=== PATIENT | male | born 1940 | race American Indian/Alaskan Native ===

== ENCOUNTER 2017-04-12 16:38 | Outpatient (CLI) | payer MEDICARE, OTHER ==
--- NOTE | 2017-04-14 09:12 | Magnetic Resonance Report ---
MRI scan of the lumbar spine: Technique: Multiplanar multisequence images were obtained without contrast injection. Findings: The conus medullaris terminates at L1 with normal signal intensity. Normal lumbar lordosis. Normal pre-and paravertebral soft tissue. Normal height and signal intensity of vertebral bodies. Decrease in height and signal intensity of intervertebral disc spaces secondary to degenerative changes. L1-L2. Bilateral neural foramina narrowing being more pronounced on the left side secondary to degenerative diffuse disc bulge and degenerative facet joints with mild ligamenta flava hypertrophy. No central canal spinal stenosis. L2-L3. Bilateral moderate neural foramina narrowing secondary to degenerative disc and degenerative facet joints. Mild ligamenta flava hypertrophy. No definite central canal spinal stenosis. L3-L4. Moderate to severe bilateral neuroforaminal narrowing and mild central canal spinal stenosis secondary to degenerative diffuse disc bulge and degenerative facet joints with ligamentum flavum hypertrophy. L4-5. Severe bilateral neuroforaminal narrowing and moderate central canal spinal stenosis secondary to degenerative diffuse disc bulge, degenerative facet joints and ligamenta flava hypertrophy. L4-L5. Moderate bilateral neural foramina narrowing. No central canal spinal stenosis. Degenerative facet joints and degenerative disc. No focal extrusion or sequestration of disc. Impression: Multilevel bilateral neural foramina narrowing and central canal spinal stenosis secondary to degenerative diffuse disc bulge and degenerative facet joints with ligamenta flava hypertrophy.
== END 2017-04-12 16:39 | disposition home or self-care (01) ==
LOC: MRI 16:38
PROVIDERS: ATTEND Neurological Surgery
DX: M48.06 Spinal stenosis, lumbar region (principal); I11.0 Hypertensive heart disease with heart failure; I50.9 Heart failure, unspecified; I25.10 Atherosclerotic heart disease of native coronary artery without angina pectoris; E78.5 Hyperlipidemia, unspecified
CPT/HCPCS: 72148

== ENCOUNTER 2017-12-19 14:46 | Outpatient (CLI) | payer MEDICARE, OTHER ==
--- NOTE | 2017-12-19 21:09 | XRay Report ---
FINAL REPORT PROCEDURE: XR KNEE 4+V LT TECHNIQUE: Left knee, four views HISTORY: LEFT KNEE PAIN COMPARISON: No prior studies are available for comparison. FINDINGS: There are tricompartmental osteoarthritic changes. There is joint space narrowing and osteophyte formation. No joint effusion. Vascular calcifications are present. IMPRESSION: Tricompartmental osteoarthritis
== END 2017-12-19 14:47 | disposition home or self-care (01) ==
LOC: SPVIMAG 14:46
PROVIDERS: ATTEND Orthopaedic Surgery Sports Medicine
DX: M17.12 Unilateral primary osteoarthritis, left knee (principal)

== ENCOUNTER 2019-07-24 10:03 | Outpatient (CLI) | payer MEDICARE, OTHER ==
--- NOTE | 2019-07-24 19:02 | Ultrasound Report ---
ULTRASOUND ABDOMEN, COMPLETE INDICATION: D69.6)THROMBOCYTOPENIA EVALUATE LIVER AND /OR SPLEEN SIZE. COMPARISON: None available. FINDINGS: Pancreas: Normal. Abdominal Aorta: Normal. IVC: Normal. Liver: Normal size however the imaging of the liver was difficult and appears to be heterogeneous Gallbladder: Normal. Bile ducts: Normal. Common Bile Duct measures 4 mm. Right Kidney: Normal. Left Kidney: Echogenic focus with acoustic shadowing left kidney questionable renal calculus Spleen: Normal size without evidence of focal lesion Free fluid: None. Additional Findings: None. IMPRESSION: 1. Probable left nephrolithiasis 2. Questionable diffuse liver disease recommend CT with intravenous contrast for further evaluation Signer Name: Otto Saavedra MD Signed: 07/24/2019 6:58 PM Workstation Name: [id number]
== END 2019-07-24 10:04 | disposition home or self-care (01) ==
LOC: US 10:03
PROVIDERS: ATTEND Internal Medicine Hematology & Oncology
DX: D69.6 Thrombocytopenia, unspecified (principal); I25.10 Atherosclerotic heart disease of native coronary artery without angina pectoris; E78.5 Hyperlipidemia, unspecified; I11.0 Hypertensive heart disease with heart failure; I50.9 Heart failure, unspecified; M19.90 Unspecified osteoarthritis, unspecified site
CPT/HCPCS: 76700

== ENCOUNTER 2019-08-05 05:38 | Outpatient (CLI) | payer MEDICARE, BC, OTHER ==
[2019-08-05 08:01] LABS: Blood Urea Nitrogen 11 mg/dL (9-20)
--- NOTE | 2019-08-05 09:36 | Cat Scan Report ---
CT ABDOMEN WITH CONTRAST HISTORY: K76.9) LIVER DISEASE. COMPARISON: Ultrasound abdomen performed 07/24/2019 TECHNIQUE: CT images of the abdomen were obtained following administration of intravenous contrast. S agittal and coronal reformatted images. All CT scans at this location are performed using CT dose red uction for ALARA by means of automated exposure control. CONTRAST: 100 ml of intravenous contrast administered. FINDINGS: The liver is normal size and contour. Mild diffuse fatty infiltration is suspected throughout the elie er. No evidence for surface nodularity or liver mass. The hepatic veins and portal venous system are widely patent. The biliary system, pancreas, spleen, kidneys and adrenal glands are unremarkable. The bowel loops appear normal caliber and wall thickness throughout the abdomen and pelvis. No eviden ce for obstruction, focal mass or inflammation. I believe I see the appendix inferior to the cecum wh ich is unremarkable. The bladder and distal ureters are within normal limits. No pelvic fluid collection or adenopathy. The bony structures are demineralized. There is mild dextro curvature to the lumbar spine with diffus e degenerative changes. No fracture or suspicious bony lesion is detected. The visualized lung bases are clear. Normal heart size. IMPRESSION: Mild fatty infiltration throughout the liver. No enlargement or focal mass. Signer Name: Ernesto Delatorre Jr, MD Signed: 08/05/2019 9:32 AM Workstation Name: [id number]
== END 2019-08-05 05:39 | disposition home or self-care (01) ==
LOC: CT 05:38
PROVIDERS: ATTEND Internal Medicine Hematology & Oncology
DX: K76.9 Liver disease, unspecified (principal); K76.0 Fatty (change of) liver, not elsewhere classified
CPT/HCPCS: 36415; 74160; 82565; 84520

== ENCOUNTER 2021-02-20 19:49 | Emergency (ER) | payer MEDICARE, OTHER ==
--- NOTE | 2021-02-20 22:46 | XRay Report ---
RIGHT HAND RADIOGRAPH, 3 VIEWS INDICATION / CLINICAL INFORMATION: Foreign body right index finger COMPARISON: None available. FINDINGS: BONES / JOINT(S): No acute displaced fracture or subluxation. Mild panarticular osteoarthritis. SOFT TISSUES: Soft tissue swelling of the index finger. The reported foreign object is not visualized radiographically. ADDITIONAL FINDINGS: None. Signer Name: Delaney Cardenas MD Signed: 02/20/2021 10:41 PM Workstation Name: [id number]
[2021-02-20] MEDS ORDERED: TETANUS,DIPH,PERTUSS(ACELL) VACCINE 0.5 ML SYRINGE IM ONE (23:35)
[2021-02-20] MEDS ORDERED: BUPIVACAINE/PF (0.5%) 5 MG/1 ML 10 ML VIAL INFILTRATI ONE (23:35)
--- NOTE | 2021-02-20 23:44 | Emergency Department Report ---
- General Chief Complaint: Wound/Laceration Stated Complaint: RT FINGER INJURY Time Seen by Provider: 02/20/21 22:27 Source: patient Mode of arrival: Ambulatory Limitations: No Limitations - History of Present Illness Initial Comments: Patient is a 80-year-old male presents emergency room complaints of a wooden splinter present to his right index finger that occurred tonight. He states that he was walking down the steps of his deck and caught himself on the railing and that the splinter got stuck inside the finger. He states that he was able to pull a piece out but it broke off and another piece is still left inside. He denies any significant bleeding. He denies any other injury. He is unsure of his last tetanus immunization but states he knows it has been longer than 5 years. He denies any numbness or weakness. He is still able to move the finger. Past medical history of CHF, arthritis, hypertension. No allergies to medications. - Related Data Home Medications Medication Instructions Recorded Confirmed Last Taken Aspirin 325 mg PO QDAY 03/27/14 03/27/14 03/27/14 Gabapentin 300 mg PO DAILY 03/27/14 03/27/14 03/27/14 Metoprolol [Lopressor] 25 mg PO TID 03/27/14 03/27/14 03/27/14 Omeprazole [PriLOSEC] 1 tab PO DAILY 03/27/14 03/27/14 03/27/14 Rosuvastatin (Nf) [Crestor] 40 mg PO QHS 03/27/14 03/27/14 03/26/14 Warfarin [Coumadin] 2.5 mg PO QDAY 03/27/14 03/27/14 03/26/14 Previous Rx's Medication Instructions Recorded Last Taken Type Neomycin/Bacitracin/Polymyxinb 1 applicatio TP BID #14 oint...g. 02/21/21 Unknown Rx [Triple Antibiotic Ointment] cephALEXin [Keflex] 500 mg PO QID 7 Days #28 cap 02/21/21 Unknown Rx Allergies Allergy/AdvReac Type Severity Reaction Status Date / Time No Known Allergies Allergy Unverified 08/20/13 13:23 ED Review of Systems ROS: Stated complaint: RT FINGER INJURY Other details as noted in HPI Comment: All other systems reviewed and negative ED Past Medical Hx - Past Medical History Previous Medical History?: Yes Hx Hypertension: Yes Hx Congestive Heart Failure: Yes Hx Arthritis: Yes - Surgical History Past Surgical History?: No - Social History Smoking Status: Never Smoker Substance Use Type: None - Medications Home Medications: Home Medications Medication Instructions Recorded Confirmed Last Taken Type Aspirin 325 mg PO QDAY 03/27/14 03/27/14 03/27/14 History Gabapentin 300 mg PO DAILY 03/27/14 03/27/14 03/27/14 History Metoprolol [Lopressor] 25 mg PO TID 03/27/14 03/27/14 03/27/14 History Omeprazole [PriLOSEC] 1 tab PO DAILY 03/27/14 03/27/14 03/27/14 History Rosuvastatin (Nf) [Crestor] 40 mg PO QHS 03/27/14 03/27/14 03/26/14 History Warfarin [Coumadin] 2.5 mg PO QDAY 03/27/14 03/27/14 03/26/14 History Neomycin/Bacitracin/Polymyxinb 1 applicatio TP BID #14 oint...g. 02/21/21 Unknown Rx [Triple Antibiotic Ointment] cephALEXin [Keflex] 500 mg PO QID 7 Days #28 cap 02/21/21 Unknown Rx ED Physical Exam - General Limitations: No Limitations General appearance: alert, in no apparent distress - Head Head exam: Present: atraumatic, normocephalic - Eye Eye exam: Present: normal appearance - ENT ENT exam: Present: mucous membranes moist - Extremities Exam Extremities exam: Present: other (there are two small pin point puncture wounds present to the distal palmar surface of the right index finger which appear consistent with entrance and exit wound, there is a palpable piece of wound remaining, no bony ttp, no bleeding, FROM of the wrist, hand, and digits, neurovascularly intact) - Neurological Exam Neurological exam: Present: alert, oriented X3 - Psychiatric Psychiatric exam: Present: normal affect, normal mood - Skin Skin exam: Present: warm, dry ED Course Vital Signs 02/20/21 02/21/21 21:55 01:38 Temperature 98.3 F 98.2 F Pulse Rate 76 81 Respiratory 18 16 Rate Blood Pressure 156/81 Blood Pressure 126/66 [Left] O2 Sat by Pulse 97 100 Oximetry - Procedure Description Procedures done: Foreign body removal from the right index finger. Verbal consent given by patient, risk and alternatives discussed. Irrigated with saline and scrubbed with Betadine, digital block performed, made sure to aspirate to avoid arterial infiltration, 6 cc of anestheic used containing a 50- 50 mixture of 1% lidocaine without epinephrine and 0.5% bupivacaine without epinephrine, good anesthesia achieved, 2 mm incision made with 11 blade, able to use sharp forceps and removed thin wooden foreign body completely, patient tolerated well, no complications, bleeding controlled, sterile dressing applied by nurse ED Medical Decision Making - Medical Decision Making Patient is a 80-year-old male presents emergency room complaints of a wooden splinter present to his right index finger that occurred tonight. He states that he was walking down the steps of his deck and caught himself on the railing and that the splinter got stuck inside the finger. He states that he was able to pull a piece out but it broke off and another piece is still left inside. He denies any significant bleeding. He denies any other injury. He is unsure of his last tetanus immunization but states he knows it has been longer than 5 years. He denies any numbness or weakness. He is still able to move the finger. Past medical history of CHF, arthritis, hypertension. No allergies to medications. Vitals are stable. On exam:there are two small pin point puncture wounds present to the distal palmar surface of the right index finger which appear consistent with entrance and exit wound, there is a palpable piece of wound remaining, no bony ttp, no bleeding, FROM of the wrist, hand, and digits, neurovascularly intact. Foreign body removed per procedure note without any complications. Patient given tetanus immunization. Patient given prescription for Keflex and triple antibiotic ointment. Advised patient Please take medication as prescribed. Please keep area clean, dry, covered. Wash with antibacterial soap and water and pat dry. No hot tub, no pool, no soaking in water. Showering is fine. Follow-up with your primary care doctor for reexamination. Return to emergency room immediately for any new or worsening symptoms or any signs of infection. Critical care attestation.: If time is entered above; I have spent that time in minutes in the direct care of this critically ill patient, excluding procedure time. ED Disposition Clinical Impression: Foreign body of right index finger Disposition: TO HOME OR SELFCARE Is pt being admited?: No Does the pt Need Aspirin: No Condition: Stable Instructions: Skin Foreign Body Additional Instructions: Please take medication as prescribed. Please keep area clean, dry, covered. Wash with antibacterial soap and water and pat dry. No hot tub, no pool, no soaking in water. Showering is fine. Follow-up with your primary care doctor for reexamination. Return to emergency room immediately for any new or worsening symptoms or any signs of infection. Prescriptions: cephALEXin [Keflex] 500 mg PO QID 7 Days #28 cap Neomycin/Bacitracin/Polymyxinb [Triple Antibiotic Ointment] 1 applicatio TP BID #14 oint...g. Referrals: PRIMARY CARE, [Primary Care Provider] - 3-5 Days Time of Disposition: 01:15 Print Language: ERITREAN
[2021-02-21 01:40] VITALS: BP 126/66
== END 2021-02-21 01:39 | disposition home or self-care (01) ==
LOC: ED 19:49
DX: S61.240A Puncture wound with foreign body of right index finger without damage to nail, initial encounter (principal); I11.0 Hypertensive heart disease with heart failure; I50.9 Heart failure, unspecified; M19.91 Primary osteoarthritis, unspecified site; Z79.899 Other long term (current) drug therapy; X58.XXXA Exposure to other specified factors, initial encounter; Y93.89 Activity, other specified; Y92.89 Other specified places as the place of occurrence of the external cause; Y99.8 Other external cause status
CPT/HCPCS: 90471; 90715

== ENCOUNTER 2021-03-02 12:51 | Outpatient (CLI) | payer MEDICARE, OTHER ==
--- NOTE | 2021-03-02 14:33 | XRay Report ---
LEFT FOOT 3 VIEWS INDICATION: Z18.9. COMPARISON: None. IMPRESSION: Moderate to severe osteopenia is evident. There appear to be subacute healing fractures of the metacarpal necks 3 and 4. The third metacarpal fracture is mildly displaced. The remaining bon y structures are grossly intact. A moderate hallux valgus deformity is present with moderate degener ative changes at the first metatarsophalangeal joint. No erosive joint pathology. Small plantar spur is noted. The soft tissues are unremarkable. Signer Name: Ernesto Delatorre Jr, MD Signed: 03/02/2021 2:28 PM Workstation Name: [id number]
== END 2021-03-02 12:52 | disposition home or self-care (01) ==
LOC: XRAY 12:51
PROVIDERS: ATTEND Family Medicine
DX: M20.12 Hallux valgus (acquired), left foot (principal); M77.32 Calcaneal spur, left foot; M19.072 Primary osteoarthritis, left ankle and foot; Z18.9 Retained foreign body fragments, unspecified material

== ENCOUNTER 2022-01-07 15:39 | Outpatient (CLI) | payer MEDICARE, BC, OTHER ==
--- NOTE | 2022-01-07 16:51 | Cat Scan Report ---
CT ABDOMEN AND PELVIS WITHOUT CONTRAST INDICATION / CLINICAL INFORMATION: Kidney stone. TECHNIQUE: All CT scans at this location are performed using CT dose reduction for ALARA by means of automated exposure control. COMPARISON: 08/05/19. FINDINGS: ABDOMEN: There is no evidence of renal calculus, hydronephrosis, perinephric soft tissue stranding or renal mass. There are moderate atherosclerotic calcifications involving the abdominal aorta without aneurysm. No adenopathy is present. The liver, spleen, gallbladder, bile ducts, pancreas, adrenal glands and bowel demonstrate no signifi cant abnormality. The lung bases are clear. There is moderate coronary artery calcification. PELVIS: The prostate gland is mildly enlarged. The distal ureters, urinary bladder and seminal vesicl es are normal. The cecum is located in the right upper quadrant anteriorly. There is no evidence of appendicitis or diverticulitis. No abnormal mass or fluid collection is seen. I do not identify a hernia. There is mo derately advanced spondylosis. IMPRESSION: 1. No acute abnormality is identified. 2. No evidence of urinary tract calculus or hydronephrosis. Signer Name: Eyal Gutierrez MD Signed: 01/07/2022 4:47 PM Workstation Name: [id number]
== END 2022-01-07 15:40 | disposition home or self-care (01) ==
LOC: CT 15:39
PROVIDERS: ATTEND Urology
DX: N40.0 Benign prostatic hyperplasia without lower urinary tract symptoms (principal); N20.0 Calculus of kidney; I25.10 Atherosclerotic heart disease of native coronary artery without angina pectoris; M47.819 Spondylosis without myelopathy or radiculopathy, site unspecified
CPT/HCPCS: 74176